=== PATIENT | male | born 1995 | race Caucasian/White ===

== ENCOUNTER 2020-05-01 04:49 | Emergency (ER) | payer MEDICAID ==
[~2020-05-01] VITALS: Ht 182.9 cm; Wt 70.3 kg
[2020-05-01 05:01] VITALS: BP_SYST 130
--- NOTE | 2020-05-01 05:01 | NUR ---
Patient to ER bed 6 to gown for evaluation. Side rails up.
--- NOTE | 2020-05-01 05:13 | NUR ---
ER Dr. Giles at bedside examining patient.
[2020-05-01 05:33] VITALS: BP_SYST 130
--- NOTE | 2020-05-01 05:33 | NUR ---
Patient given written and verbal discharge instructions and verbalizes understanding. ER MD discussed with patient the results and treatment provided. Patient in stable condition. ID arm band removed. Rx of Biaxin Filmtab given. Patient educated on pain management and to follow up with PMD. Pain Scale 0. Opportunity for questions provided and answered. Medication side effect fact sheet provided.
== END 2020-05-01 05:33 | disposition home or self-care (01) ==
LOC: SED 04:49
DX: H66.92 Otitis media, unspecified, left ear (principal); Z88.1 Allergy status to other antibiotic agents; Z88.6 Allergy status to analgesic agent
CPT/HCPCS: 99283